=== PATIENT | male | born 1950 | race Caucasian/White ===

== ENCOUNTER 2017-09-10 16:32 | Inpatient (IN) | payer MEDICARE ==
[~2017-09-10] VITALS: Ht 162.5 cm; Wt 69.5 kg
[2017-09-10] VITALS (9 sets, daily range): BP systolic 105–197; BP diastolic 67–87
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
--- NOTE | ~2017-09-10 | PR ---
[place], [place] PROGRESS NOTE [id number] #: [id number] ROOM: 312 DOCTOR: KIRBY FULLER MD BIRTHDATE: [birth year] DOS: 09/15/2017 CHIEF COMPLAINT: "You are my only sunshine. Thank you doctor so much." SUMMARY OF THE VISIT: The patient was interviewed as he sat in the dining area, watching television. He stopped and engaged me in conversation, reporting that he has felt the best he has in a long while that he is sleeping well, eating well. His memory is back. He is very positive about the future. He is anxiously awaiting going to marriage counseling with his Saturday morning. He convincingly denies suicidal thoughts, homicidal thoughts or any self-injurious thoughts as well as denying any issues pertaining to his memory. He does report that the current medication regimen seems to be working and denies any side effects from the medicines themselves. MENTAL STATUS: He is alert and oriented. Mood seems euthymic. Affect appropriate. There is no rose or hypomania. There are no overt auditory or visual hallucinations. No delusions, no paranoia. Short, intermediate, and long-term memory are fully intact. PLAN: I will discontinue his Klonopin now. I have printed his other scripts that include Exelon patch and the Remeron to be sent home with him tomorrow. He can have followup in the area as an outpatient. KIRBY FULLER MD CM:PNTRANS [id number] KIRBY FULLER MD 09/15/17 1136 interface
--- NOTE | ~2017-09-10 | CON ---
[place], [place] REPORT OF CONSULTATION [id number] UN[facility] #: [id number] ROOM: 312 DOCTOR: KAMERON BETH DPM BIRTHDATE: [birth year] DOS: 09/12/2017 SUBJECTIVE: The patient presents, a 67-year-old male with chief complaint of a torn nail of the left great toe. 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 PHYSICAL EXAMINATION: EXTREMITIES: Lower extremity examination: Pedal pulses palpable. Decreased hair growth, nail thickening pigmentary discoloration, temperature changes, edema. Decreased epicritic sensations. Elongated, thickened, crumbly nails 1 through 5 bilateral noted upon debridement. There is partially torn nail plate, distal left hallux. No signs of acute drainage or infection. Localized damage to nail bed was previously noted with dried blood, but no acute laceration or exposed underlying nail bed. ASSESSMENT: Onychomycosis, diabetes with PVD, contusion to left hallux nail plate with damage to nail. PLAN: Evaluation and management. Debrided nails bilateral, debrided distal nail plate, left hallux also. Ordered Bactroban and bandage to apply to the distal left hallux daily and if the patient is still in house next week we will recheck the hallux at that time. KAMERON BETH DPM CM:CONSTR:REPORT OF CONSULTATION 1208 09/12/17 1243 interface
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
--- NOTE | ~2017-09-10 | PR ---
[place], [place] PROGRESS NOTE [id number] UN[facility] #: [id number] ROOM: 312 DOCTOR: KIRBY FULLER MD BIRTHDATE: [birth year] DOS: 09/13/2017 CHIEF COMPLAINT: "I got my memory back." SUMMARY OF THE VISIT: The patient was interviewed in the dining area. As I approached, he smiled readily. He reported to me that he does remember now dates and times and things that happened other than the period of time when he reported the amnestic syndrome. He reports that this is the predictable course of the illness and that he has these bouts when he will have periods of time where he does not remember anything and as he comes out of it does not remember anything that occurred during that episode. At this point, he is requesting discharge soon. I did report to him that I would like to monitor him to make certain that he truly has exited the amnestic syndrome and is not going to have a relapse. I also do want to continue to adjust his medicine to try to simplify them and eliminate those drugs that potentially could be contributing to his amnesia. MENTAL STATUS: He is alert and oriented with time gaps. Mood does seem to be euthymic. Affect appropriate. There is no hypomania, rose or psychosis. Memory this morning for events that are occurring now seem to be intact other than the period of time when he reports the amnestic syndrome, intermediate, and long-term are intact. PLAN: I will continue to taper the Klonopin lowering the nighttime dose from 2 mg to 1 mg. Plan is to discontinue that over the weekend as long acting benzodiazepines could be contributing to confusion and memory impairment. We will engage in individual and weaver milieu activity, returning home or to the least restrictive environment when psychiatrically stable. KIRBY FULLER MD CM:PNTRANS 8 KIRBY FULLER MD 09/13/17917 interface
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
--- NOTE | ~2017-09-10 | PR ---
[place], [place] PROGRESS NOTE NAME: ANTIONE GAO UNIT #: [id number] ROOM: 312 DOCTOR: KIRBY FULLER MD BIRTHDATE: [birth year] DOS: 09/14/2017 CHIEF COMPLAINT: "I have my memory back. I know stress sets these episodes off." SUMMARY OF THE VISIT: The patient was interviewed as he was sitting with several peers in the dining area. He engaged readily in conversation. He did report that he is feeling more at baseline. He does note that one of the triggers for these few episodes is increased stress. His primary stressor is ongoing marital discord. He feels that he loves his more than she loves him and in fact, she has told him per his report she no longer is in love with him. They are involved in marriage counseling in [place] and do have a marriage session set for Saturday. I did offer to add some medication for the anxiety, but he declined. At this point, I will continue to titrate the Klonopin away as I am concerned that it may have an amnestic affect as well. MENTAL STATUS: He is alert and oriented. Mood does seem to be euthymic. Affect appropriate. He does endorse some anxiety, but overall is improving. There is no rose or psychosis. Memory seems intact at this point. PLAN: As mentioned above, I will lower the nighttime Klonopin from 1 mg at bedtime to 0.5 mg at bedtime with the plan to discontinue. We will continue to engage in individual and weaver milieu activity, returning home or the least restrictive environment when psychiatrically stable. KIRBY FULLER MD CM:PNTRANS 0855 KIRBY FULLER MD 09/14/1729 interface
--- NOTE | ~2017-09-10 | PR ---
[place], [place] PROGRESS NOTE [id number] #: [id number] ROOM: 312 DOCTOR: KIRBY FULLER MD BIRTHDATE: [birth year] DOS: 09/12/2017 CHIEF COMPLAINT: "Thanks for stopping by." SUMMARY OF THE VISIT: The patient was interviewed in the dining area as he sat waiting for his breakfast to be delivered. He continues to report confusion, does not remember how long he has been in the hospital. I asked him if he remembered visiting with Dr. Bryson Lea, psychologist and he stated to me that he did not remember if he met Dr. Lea and who Dr. Lea even was. Dr. Lea deemed the patient incompetent, reporting that he has significant memory impairment at the present time that he cannot meet his basic needs. Staff notes that he did sleep well last evening and his appetite has been fairly solid. MENTAL STATUS: He is alert and oriented to self. It is unclear if he realizes he is in the hospital. He is certainly not oriented currently to time. Mood does seem to be somewhat euthymic, although he is somewhat anxious at times. There is no hypomania or rose. There are no overt auditory or visual hallucinations. No delusions, no paranoia. Short term memory remains exceedingly poor. PLAN: I will increase Exelon patch from 4.6 to 9.5 mg daily. I will discontinue his daytime Klonopin, trying to limit the amount of total long acting benzo he has in the system. We will engage him in individual and weaver milieu activity with the plan to return to the least restrictive environment when stable. At this point, we will proceed with a PASAR and see if the patient does require long-term care placement. KIRBY FULLER MD CM:PNTRANS [id number] KIRBY FULLER MD 09/12/17902 interface
[~2017-09-10 16:32] MED LIST: 'CYTOTEC200 MCG PO; AMARYL1 MG PO; ASPIRIN FOR CHI81 MG PO; CLONAZEPAM1 MG PO; CRESTOR40 MG PO; DIVALPROEX SOD250 M1 PO; ENALAPRIL5 MG PO; FERGON PO; LEXAPRO5 MG PO; LORAZEPAM1 MG PO; LUNESTA2 MG PO; METFORMIN1000 MG PO; METFORMIN500 MG PO; NEXIUM40 MG PO; OXYBUTYNIN5 MG PO; RISPERDAL0.5 MG PO; RISPERDAL1 MG PO; RISPERIDONE2 MG PO; TRAZODONE150 MG PO
[2017-09-10 17:32] LABS: BASO % 0.2 % (0.0-1.0); EOS # 0.2 10*3/uL (0.0-0.4); EOS % 1.8 % (1.0-4.0); HEMATOCRIT 36.1 % (42.0-52.0); HEMOGLOBIN 12.1 g/dl (14.0-18.0); LYMPH # 1.8 10*3/uL (1.3-4.4); MEAN CELL VOLUME 87.4 fl (80.0-94.0); MEAN CORPUSCULAR HGB 29.3 pg (27.0-31.0); MEAN CORPUSCULAR HGB CONC 33.5 g/dl (33.0-37.0); MEAN PLATELET VOLUME 11.7 fl (9.6-12.3); MONO # 0.5 10*3/uL (0.1-1.0); MONO % 5.9 % (3.0-9.0); NEUT # 5.7 10*3/uL (2.3-7.9); NEUT % 69.9 % (47.0-73.0); PLATELET COUNT AUTOMATED 181 10*3/uL (130-400); RED BLOOD COUNT 4.13 10*6/uL (4.50-5.90); WHITE BLOOD COUNT 8.2 10*3/uL (4.8-10.8)
[2017-09-10] MEDS ORDERED: ZYPREXA ZYDIS5 MG PO (17:34)
[2017-09-10] MEDS ORDERED: NORVASC5 MG PO (17:36)
[2017-09-10] MEDS ORDERED: HALOPERIDOL1 MG PO (17:36)
[2017-09-10] MEDS ORDERED: Synthroid,Levo50 MCG PO (17:37)
[2017-09-10] MEDS ORDERED: PEPCID AC10 M2 PO (17:40)
[2017-09-10] MEDS ORDERED: VITAMIN D32000 UNI1 PO (17:42)
[2017-09-10] MEDS ORDERED: MIRALAX POWDER255 G1 PO (17:43)
[2017-09-10 17:54] LABS: ALBUMIN 3.7 gm/dl (3.1-4.5); BUN 17 mg/dl (7-24); CHLORIDE 99 mmol/L (98-107); CREATININE 1.29 mg/dL (0.70-1.30); POTASSIUM 4.3 mmol/L (3.5-5.1); SGOT/AST 121 IU/L (3-35); SGPT/ALT 58 U/L (12-78); SODIUM 133 mmol/L (136-145)
[2017-09-10 17:58] LABS: ALKALINE PHOSPHATASE 87 U/L (45-117); TOTAL PROTEIN 7.1 gm/dL (6.4-8.2)
[2017-09-10 18:07] LABS: TROPONIN I < 0.015 ng/ml (<0.045)
[2017-09-10 18:12] LABS: BILIRUBIN NEGATIVE (NEGATIVE); BLOOD NEGATIVE (NEGATIVE); CLARITY CLEAR (CLEAR); COLOR YELLOW (YELLOW); GLUCOSE NEGATIVE (NEGATIVE); KETONE NEGATIVE (NEGATIVE); LEUKO ESTERASE NEGATIVE (NEGATIVE); NITRITE NEGATIVE (NEGATIVE); SPECIFIC GRAVITY <= 1.005 (1.005-1.030); UROBILINOGEN 0.2 E.U./dl (0.2-1.0)
[2017-09-10 18:20] LABS: BACTERIA TRACE; WBC 0-2 wbc/hpf (0-5)
[2017-09-10] MEDS ORDERED: ROSUVASTATIN CA20 MG PO (22:07)
[2017-09-10] MEDS ORDERED: FERGON240 MG PO (22:07)
[2017-09-10] MEDS ORDERED: TRAZADONE HYDR100 MG PO (22:08)
[2017-09-10] MEDS ORDERED: HALDOL0.5 MG PO (22:08)
[2017-09-10] MEDS ORDERED: OLANZAPINE5 MG PO (22:09)
[2017-09-10] MEDS ORDERED: ASPIRIN ADULT L81 M2 PO (22:11)
[2017-09-10] MEDS ORDERED: MISOPROST200 MCG PO (22:11)
[2017-09-11 03:55] VITALS: BP 128/76
[2017-09-11 07:32] VITALS: BP 123/72
[2017-09-11 07:54] LABS: BASO % 0.5 % (0.0-1.0); EOS # 0.2 10*3/uL (0.0-0.4); EOS % 2.5 % (1.0-4.0); HEMATOCRIT 38.7 % (42.0-52.0); HEMOGLOBIN 12.9 g/dl (14.0-18.0); LYMPH # 1.4 10*3/uL (1.3-4.4); MEAN CELL VOLUME 89.2 fl (80.0-94.0); MEAN CORPUSCULAR HGB 29.7 pg (27.0-31.0); MEAN CORPUSCULAR HGB CONC 33.3 g/dl (33.0-37.0); MEAN PLATELET VOLUME 11.8 fl (9.6-12.3); MONO # 0.5 10*3/uL (0.1-1.0); NEUT # 3.9 10*3/uL (2.3-7.9); NEUT % 64.7 % (47.0-73.0); PLATELET COUNT AUTOMATED 190 10*3/uL (130-400); RED BLOOD COUNT 4.34 10*6/uL (4.50-5.90); RED CELL DISTRI WIDTH 13.2 % (0-14.5)
[2017-09-11 08:09] LABS: ALBUMIN 3.9 gm/dl (3.1-4.5); BUN 12 mg/dl (7-24); CHLORIDE 99 mmol/L (98-107); POTASSIUM 4.2 mmol/L (3.5-5.1); SODIUM 135 mmol/L (136-145)
[2017-09-11 08:22] LABS: ALKALINE PHOSPHATASE 88 U/L (45-117); CHOLESTEROL 115 mg/dL (<200); CREATININE 1.15 mg/dL (0.70-1.30); HDL CHOLESTEROL 62 mg/dl (40-60); LDL CHOLESTEROL 38 mg/dL (9-159); SGOT/AST 40 IU/L (3-35); SGPT/ALT 50 U/L (12-78); TOTAL PROTEIN 7.4 gm/dL (6.4-8.2); TRIGLYCERIDES 73 mg/dl (<150); VLDL CHOLESTEROL 15 mg/dL (6-40)
[2017-09-11 08:56] LABS: VITAMIN D, 25-HYDROXY 116.4 ng/mL (30-100)
[2017-09-11 19:56] VITALS: BP 127/75
[2017-09-12 07:29] VITALS: BP 125/78
[2017-09-12 19:48] VITALS: BP 135/77
[2017-09-13 07:38] VITALS: BP 132/86
[2017-09-13 20:00] VITALS: BP 155/79
[2017-09-14 08:16] VITALS: BP 148/88
[2017-09-14 19:48] VITALS: BP 156/69
[2017-09-15 08:00] VITALS: BP 158/88
[2017-09-15] MEDS ORDERED: RIVASTIGMINE1 EAC1 T (08:55)
[2017-09-15] MEDS ORDERED: MIRTAZAPINE15 M2 PO (08:55)
[2017-09-15 20:01] VITALS: BP 158/71
[2017-09-16 07:42] VITALS: BP 159/85
== END 2017-09-16 09:03 | disposition home or self-care (01) | DRG 885 ==
LOC: ED 16:32 → EDHOLD 19:08 → 3N 19:08
PROVIDERS: Family Medicine; Psychiatry & Neurology Psychiatry
PROC: 0HBRXZZ Excision of Toe Nail, External Approach (ICD-10-PCS; principal; 2017-09-12)
DX: F23 Brief psychotic disorder (principal); E11.22 Type 2 diabetes mellitus with diabetic chronic kidney disease; E11.51 Type 2 diabetes mellitus with diabetic peripheral angiopathy without gangrene; G21.0 Malignant neuroleptic syndrome; E87.1 Hypo-osmolality and hyponatremia; E11.65 Type 2 diabetes mellitus with hyperglycemia; B35.1 Tinea unguium; I13.0 Hypertensive heart and chronic kidney disease with heart failure and stage 1 through stage 4 chronic kidney disease, or unspecified chronic kidney disease; F33.9 Major depressive disorder, recurrent, unspecified; F01.50 Vascular dementia, unspecified severity, without behavioral disturbance, psychotic disturbance, mood disturbance, and anxiety; F43.10 Post-traumatic stress disorder, unspecified; S90.222A Contusion of left lesser toe(s) with damage to nail, initial encounter; E78.2 Mixed hyperlipidemia; D64.9 Anemia, unspecified; R00.1 Bradycardia, unspecified; N18.3 Chronic kidney disease, stage 3 (moderate); F63.81 Intermittent explosive disorder; S09.90XA Unspecified injury of head, initial encounter; Z87.820 Personal history of traumatic brain injury; Z90.49 Acquired absence of other specified parts of digestive tract; Z82.49 Family history of ischemic heart disease and other diseases of the circulatory system; Z80.3 Family history of malignant neoplasm of breast; Z88.1 Allergy status to other antibiotic agents; Z88.8 Allergy status to other drugs, medicaments and biological substances; Z79.899 Other long term (current) drug therapy; Z79.82 Long term (current) use of aspirin